=== PATIENT | female | born 1995 | race Caucasian/White ===

== ENCOUNTER 2021-11-20 01:28 | Emergency (ER) | payer OTHER ==
--- NOTE | 2021-11-20 01:32 | ED Physician Documentation ---
PD HPI UPPER EXT INJURY - Stated complaint Stated Complaint: RT THUMB INJURY - History obtained from History obtained from: Patient - History of Present Illness Location: Right, Finger (thumb) Type of injury: Crush Timing - onset: Enter time (18:00) Timing - details: Abrupt onset Pain level now: 7 Improved by: Rest Worsened by: Moving, Palpating Associated symptoms: Swelling Recently seen: Not recently seen - Additonal information Additional information: patient's right thumb got caught in a closing car door at approximately 6 PM, causing immediate pain. Since the injury, the pain and swelling have steadily worsened. She took aleve without adequate improvement. Patient is right hand dominant. Review of Systems Musculoskeletal: reports: Extremity pain (right thumb), Extremity swelling (right thumb) Neurologic: denies: Focal weakness, Numbness PD PAST MEDICAL HISTORY - Past Medical History Past Medical History: Yes - Present Medications Home Medications: Ambulatory Orders Medication Instructions Recorded Confirmed Naltrexone Microspheres [Vivitrol] IM 11/20/21 oxyCODONE [Roxicodone] 5 mg PO Q4-6H PRN #8 tablet 11/20/21 - Allergies Allergies/Adverse Reactions: Allergies Allergy/AdvReac Type Severity Reaction Status Date / Time No Known Drug Allergies Allergy Verified 11/20/21 01:41 - Living Situation Living Arrangement: reports: At home PD ED PE NORMAL - Vitals Vital signs reviewed: Yes - General General: Alert and oriented X 3, No acute distress, Well developed/nourished PD ED PE EXPANDED - Extremities Extremities: Other (right thumb: swelling, tenderness, erythema distal to IP joint. there is a small subungual hematoma limited to 2-3 mm adjacent to proximal nail fold (I would estimate less than 10% surface area). FROM MCP, IP joints but increased pain with movement at IP joint) Results - Vitals Vitals: Vital Signs - 24 hr 11/20/21 11/20/21 01:35 02:30 Temperature 36.3 C L Heart Rate 104 H 67 Respiratory 16 16 Rate Blood Pressure 152/119 H 124/79 O2 Saturation 100 100 Oxygen O2 Source Room air - Rads (name of study) right thumb xrays Radiology: Prelim report reviewed, See rad report PD MEDICAL DECISION MAKING - ED course Complexity details: reviewed results, re-evaluated patient, considered dif ferential, d/w patient ED course: sustained crush injury to right thumb, presents due to increasing pain and swelling, the pain having been unimproved with aleve. She takes vivitrol IM to curb alcohol cravings and we discussed that opiate medications such as percocet will likely be much less effective as an analgesic due to the blocking action of the vivitrol. She wishes to speak with her prescribing physician before taking percocet, and so the plan is to give take-home percocet and rx provided to her pharmacy of choice ([facility]), and she can take this medication if her prescribing physician approves. I do not see a contraindication to taking the percocet while on vivitrol but , again, an attenuated effect is to be expected. The injury, on physical exam, has an appearance that suggests there would be a significant amount of discomfort associated with it. She will try NSAIDS and acetaminophen in the interim. Departure - Departure Disposition: 01 Home, Self Care Clinical Impression: Crushing injury Condition: Good Instructions: ED Crush Injury Finger No Fx Prescriptions: oxyCODONE [Roxicodone] 5 mg PO Q4-6H PRN #8 tablet PRN Reason: Pain Comments: A prescription for oxycodone (opiate pain medication) has been electronically submitted to [facility] pharmacy in [place]. As we discussed, I think it is safe to take this medication while taking Vivitrol, but the effect of the oxycodone will likely be diminished, possibly significantly so. You can continue to take NSAIDs (such as ibuprofen or naproxen), as well as acetaminophen (tylenol). Talk to your prescribing practitioner regarding the oxycodone. Discharge Date/Time: 11/20/21 02:35
[2021-11-20 02:35] VITALS: BP 124/79
--- NOTE | 2021-11-20 08:02 | XRAY Report ---
PROCEDURE: Finger(s) RT INDICATIONS: thumb crush injury TECHNIQUE: AP hand, 3 views of the right first finger(s) acquired. COMPARISON: None FINDINGS: Bones: No fractures or dislocations. No suspicious bony lesions. Soft tissues: No suspicious soft tissue calcifications. IMPRESSION: No fracture. No osseous lesion. If there are persistent symptoms or continued clinical concern for pa thology, then repeat plain film radiographs (7-10 days) or advanced imaging (CT, MR, bone scan) shoul d be considered for further evaluation. Reviewed by: Ritika Loredo MD, PhD on 11/20/2021 8:01 AM PST Approved by: Ritika Loredo MD, PhD on 11/20/2021 8:01 AM PST Station ID: [id number]
== END 2021-11-20 02:35 | disposition home or self-care (01) ==
LOC: ED 01:28
DX: S67.01XA Crushing injury of right thumb, initial encounter (principal); W23.1XXA Caught, crushed, jammed, or pinched between stationary objects, initial encounter; Y93.89 Activity, other specified
CPT/HCPCS: 99282; 99283

== ENCOUNTER 2022-01-21 14:31 | Emergency (ER) | payer OTHER ==
[2022-01-21 15:19] LABS: BASOPHILS # (AUTO) 0.1 10^3/uL (0.0-0.1); BASOPHILS % (AUTO) 0.6 %; EOSINOPHILS # (AUTO) 0.1 10^3/uL (0.0-0.7); EOSINOPHILS % (AUTO) 0.8 %; HCT - HEMATOCRIT 42.2 % (37.0-47.0); HGB - HEMOGLOBIN 14.3 g/dL (12.0-16.0); LYMPHOCYTES % (AUTO) 26.5 %; MEAN CORPUSCULAR HEMOGLOBIN 33.3 pg (27.0-31.0); MEAN CORPUSCULAR HGB CONC 33.9 g/dL (32.0-36.0); MEAN CORPUSCULAR VOLUME 98.1 fL (81.0-99.0); MEAN PLATELET VOLUME 9.5 fL (7.9-10.8); MONOCYTES # (AUTO) 0.5 10^3/uL (0.0-1.0); MONOCYTES % (AUTO) 6.9 %; NEUTROPHILS % (AUTO) 64.9 %; PLT - PLATELET COUNT 265 10^3/uL (130-450); RED CELL DISTRIBUTION WIDTH 12.2 % (12.0-15.0); WHITE BLOOD COUNT 7.7 x10^3/uL (4.8-10.8)
[2022-01-21 15:40] LABS: ALBUMIN 4.3 g/dL (3.2-5.5); ALBUMIN/GLOBULIN RATIO 1.4 (1.0-2.2); BILIRUBIN,TOTAL 0.6 mg/dL (0.2-1.0); CALCIUM 9.3 mg/dL (8.5-10.3); CREATININE 0.7 mg/dL (0.4-1.0); POTASSIUM 4.3 mmol/L (3.5-5.0); TOTAL PROTEIN 7.4 g/dL (6.7-8.2)
--- NOTE | 2022-01-21 15:49 | XRAY Report ---
PROCEDURE: Chest 1 View X-Ray INDICATIONS: Chest Pain TECHNIQUE: One view of the chest was acquired. COMPARISON: None. FINDINGS: Surgical changes and devices: None. Lungs and pleura: No pleural effusions or pneumothorax. Lungs are clear. Mediastinum: Mediastinal contours appear normal. Heart size is normal. Bones and chest wall: No suspicious bony lesions. Overlying soft tissues appear unremarkable. IMPRESSION: No acute cardiopulmonary pathology. Reviewed by: Sunny Mackenzie MD on 01/21/2022 3:47 PM PDT Approved by: Sunny Mackenzie MD on 01/21/2022 3:47 PM PDT Station ID: [id number]
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
[2022-01-21] MEDS ORDERED: KETOROLAC 60 MG/2 ML VIAL IM STA (16:00)
[2022-01-21] MEDS ORDERED: CHERRY SYRUP 10 ML UDC PO ONE (16:00)
[2022-01-21] MEDS ORDERED: DEXAMETHASONE 10 MG/ML VIAL PO STA (16:00)
[2022-01-21 16:24] VITALS: BP 130/69
== END 2022-01-21 16:24 | disposition home or self-care (01) ==
LOC: ED 14:31
DX: M94.0 Chondrocostal junction syndrome [Tietze] (principal)
CPT/HCPCS: 36415; 71045; 80053; 83690; 84484; 85025; 85379; 93005; 96372; 99284; A9270